=== PATIENT | male | born 1955 | race Caucasian/White ===

== ENCOUNTER → 2020-03-20 | Outpatient (CLI) | payer SELFPAY ==
[2020-03-20 18:49] LABS: BASOPHILS ABSOLUTE AUTO 0.09 K/mm3 (0.00-0.23); BASOPHILS PERCENT AUTO 1 % (0-2); EOSINOPHILS ABSOLUTE AUTO 0.17 K/mm3 (0.00-0.68); EOSINOPHILS PERCENT AUTO 2 % (0-6); Hemoglobin 12.3 g/dL (13.5-17.5); IMMATURE GRAN ABSOLUTE AUTO 0.03 K/mm3 (0.00-0.10); IMMATURE GRAN PERCENT AUTO 0 % (0-1); LYMPHOCYTES ABSOLUTE AUTO 1.23 K/mm3 (0.84-5.20); LYMPHOCYTES PERCENT AUTO 12 % (21-46); MONOCYTES ABSOLUTE AUTO 0.85 K/mm3 (0.16-1.47); MONOCYTES PERCENT AUTO 8 % (4-13); Mean Corpuscular HGB 25.4 pg (26.0-34.0); Mean Corpuscular HGB Conc 31.5 g/dL (31.5-36.5); Mean Corpuscular Volume 80 fL (80-100); Mean Platelet Volume 8.3 fL (9.1-12.4); NEUTROPHILS ABSOLUTE AUTO 7.77 K/mm3 (1.96-9.15); NEUTROPHILS PERCENT AUTO 77 % (41-73); Platelet Count 458 K/mm3 (150-400); RDW Standard Deviation 43.6 fL (35.1-46.3); Red Blood Cell Count 4.85 M/mm3 (4.30-5.90); White Blood Cell Count 10.14 K/mm3 (4.00-11.30)
[2020-03-20 18:59] LABS: Alanine Aminotransfer (ALT/SGP 30 U/L (12-78); Albumin, Blood 2.8 g/dL (3.4-5.0); Albumin/Globulin Ratio 0.6 (0.8-1.8); Alk Phos 123 U/L (40-126); Anion Gap 4 mmol/L (6-16); Aspartate Aminotrans (AST/SGOT 25 U/L (12-37); Bilirubin, Total 0.3 mg/dL (0.1-1.0); Blood Urea Nitrogen 11 mg/dL (8-24); Bun/Creatinine Ratio 18.6 (12.0-20.0); CO2, Blood 34 mmol/L (21-32); Calcium, Blood 9.5 mg/dL (8.5-10.1); Chloride, Blood 97 mmol/L (98-108); Creatinine, Blood 0.59 mg/dL (0.60-1.20); Globulin, Blood 4.7 g/dL (2.2-4.0); Glomerular Filtration Rate >60 (60-); Glucose, Blood 141 mg/dL (70-99); Potassium, Blood 4.1 mmol/L (3.5-5.5); Sodium, Blood 135 mmol/L (136-145); Total Protein, Blood 7.5 g/dL (6.4-8.2)
== END | disposition home or self-care (01) ==
LOC: LAB SHORT 18:43 → LAB EV 18:43
PROVIDERS: Physician Assistant Surgical
DX: R06.09 Other forms of dyspnea (principal)
CPT/HCPCS: 80053; 83880; 85025

== ENCOUNTER 2020-07-25 11:32 | Inpatient (IN) | payer SELFPAY ==
[~2020-07-25] VITALS: Ht 177.8 cm; Wt 72.6 kg
[~2020-07-25 11:32] MED LIST: IBUP200 PO
[2020-07-25 12:33] LABS: BASOPHILS ABSOLUTE AUTO 0.06 K/mm3 (0.00-0.23); BASOPHILS PERCENT AUTO 0 % (0-2); EOSINOPHILS ABSOLUTE AUTO 0.13 K/mm3 (0.00-0.68); EOSINOPHILS PERCENT AUTO 1 % (0-6); Hematocrit 47.4 % (37.0-53.0); Hemoglobin 14.3 g/dL (13.5-17.5); IMMATURE GRAN ABSOLUTE AUTO 0.07 K/mm3 (0.00-0.10); IMMATURE GRAN PERCENT AUTO 1 % (0-1); LYMPHOCYTES ABSOLUTE AUTO 0.57 K/mm3 (0.84-5.20); LYMPHOCYTES PERCENT AUTO 4 % (21-46); MONOCYTES ABSOLUTE AUTO 0.91 K/mm3 (0.16-1.47); MONOCYTES PERCENT AUTO 6 % (4-13); Mean Corpuscular HGB 25.8 pg (26.0-34.0); Mean Corpuscular HGB Conc 30.2 g/dL (31.5-36.5); Mean Corpuscular Volume 85 fL (80-100); Mean Platelet Volume 9.6 fL (9.1-12.4); NEUTROPHILS ABSOLUTE AUTO 13.43 K/mm3 (1.96-9.15); NEUTROPHILS PERCENT AUTO 88 % (41-73); Platelet Count 226 K/mm3 (150-400); RDW Coefficient Variation 18.6 % (11.7-14.2); RDW Standard Deviation 57.8 fL (35.1-46.3); Red Blood Cell Count 5.55 M/mm3 (4.30-5.90); White Blood Cell Count 15.17 K/mm3 (4.00-11.30)
[2020-07-25 12:55] LABS: Troponin I 0.211 ng/mL (0.000-0.040)
[2020-07-25 12:58] LABS: Influenza A, PCR NEGATIVE (NEGATIVE); Influenza B, PCR NEGATIVE (NEGATIVE); Resp Syncytial Virus, PCR NEGATIVE (NEGATIVE); SARS-Cov-2 (COVID-19) PCR, MMC NEGATIVE (NEGATIVE)
[2020-07-25 13:00] LABS: Alanine Aminotransfer (ALT/SGP 69 U/L (12-78); Albumin, Blood 2.5 g/dL (3.4-5.0); Albumin/Globulin Ratio 0.6 (0.8-1.8); Alk Phos 149 U/L (50-136); Anion Gap 6 mmol/L (6-16); Aspartate Aminotrans (AST/SGOT 111 U/L (12-37); Bilirubin, Total 1.4 mg/dL (0.1-1.0); Blood Urea Nitrogen 46 mg/dL (8-24); Bun/Creatinine Ratio 41.4 (12.0-20.0); CO2, Blood 34 mmol/L (21-32); Calcium, Blood 13.8 mg/dL (8.5-10.1); Chloride, Blood 93 mmol/L (98-108); Creatinine, Blood 1.11 mg/dL (0.60-1.20); Globulin, Blood 4.3 g/dL (2.2-4.0); Glomerular Filtration Rate >60 (60-); Glucose, Blood 342 mg/dL (70-99); Sodium, Blood 133 mmol/L (136-145); Total Protein, Blood 6.8 g/dL (6.4-8.2)
[2020-07-25] MEDS ORDERED: NOVOLIN N100 UNIT/2 SC (14:24)
[2020-07-25] MEDS ORDERED: NOVOLIN R100 UNIT/2 SC (14:25)
[2020-07-25] MEDS ORDERED: ALBU90OI INH (14:26)
[2020-07-25] MEDS ORDERED: SYMBICORT 160-4.6 GM INH (14:26)
[2020-07-25] MEDS ORDERED: STIOLTO RESPIMAT4 G1 INH (14:27)
[2020-07-25 14:49] LABS: Source, Urine Clean Catch
[2020-07-25 14:51] LABS: Appearance, Urine Clear (Clear); Bilirubin, Urine Neg (Neg); Blood, Urine Neg (Neg); Color, Urine Yellow (P-Yellow); Glucose Qualitative, Urine 2+ (Neg); Ketones, Urine 1+ (Neg); Leukocyte Esterase, Urine Neg (Neg); Nitrite, Urine Neg (Neg); Protein, Urine Neg (Neg); Specific Gravity, Urine 1.015 (1.003-1.022); Urobilinogen, Urine NORM (Normal)
[2020-07-25 15:08] LABS: International Normalized Ratio 1.87; Prothrombin Time Results 19.3 Sec (9.7-11.5)
--- NOTE | 2020-07-25 18:10 | NUR ---
SHIFT SUMMARY. 1602 PT ADMITTED TO MEDICAL FLOOR VIA GURNEY. PT TRANSFERED TO BED WITH SLIDER SHEET AND 3 STAFF. PT ON 5L O2 NC UPON ARIVAL, SPO2 89%, INCREASED O2 TO 6L O2, SPO2 NOW 92%. LUNGS COARSE T/O, MORE DIM ON THE L LOBES, CONTINUOUS BIOX PLACED BY RT. PT IS LETHARGIC, NEW PERSON AND PLACE, SLOW TO RESPOND. PT WITH STAGE III PRESSURE ULCER TO SACRUM WITH SLOUGH IN WOUND BED, WOUND CLEASED AND FOAM DRESSING APPLIED. SKIN TEAR TO R CLAVICLE, WOUND CLEANSED AND DRESSING PLACED. 3+ EDEMA TO BLE. CBG OVER 300, DR. ADEN NOTIFIED AND ORDERS PLACED FOR SS INSULIN.
[2020-07-26 01:50] LABS: BASOPHILS ABSOLUTE AUTO 0.05 K/mm3 (0.00-0.23); BASOPHILS PERCENT AUTO 0 % (0-2); EOSINOPHILS ABSOLUTE AUTO 0.16 K/mm3 (0.00-0.68); EOSINOPHILS PERCENT AUTO 1 % (0-6); Hematocrit 44.3 % (37.0-53.0); Hemoglobin 13.3 g/dL (13.5-17.5); IMMATURE GRAN PERCENT AUTO 1 % (0-1); LYMPHOCYTES PERCENT AUTO 5 % (21-46); MONOCYTES ABSOLUTE AUTO 1.44 K/mm3 (0.16-1.47); MONOCYTES PERCENT AUTO 10 % (4-13); Mean Corpuscular HGB 26.1 pg (26.0-34.0); Mean Corpuscular Volume 87 fL (80-100); Mean Platelet Volume 9.6 fL (9.1-12.4); NEUTROPHILS ABSOLUTE AUTO 12.71 K/mm3 (1.96-9.15); NEUTROPHILS PERCENT AUTO 84 % (41-73); Platelet Count 247 K/mm3 (150-400); RDW Coefficient Variation 18.7 % (11.7-14.2); RDW Standard Deviation 58.6 fL (35.1-46.3); Red Blood Cell Count 5.09 M/mm3 (4.30-5.90); White Blood Cell Count 15.16 K/mm3 (4.00-11.30)
[2020-07-26 01:56] LABS: Alanine Aminotransfer (ALT/SGP 62 U/L (12-78); Albumin, Blood 2.2 g/dL (3.4-5.0); Albumin/Globulin Ratio 0.6 (0.8-1.8); Alk Phos 117 U/L (50-136); Anion Gap 1 mmol/L (6-16); Aspartate Aminotrans (AST/SGOT 83 U/L (12-37); Bilirubin, Total 0.6 mg/dL (0.1-1.0); Blood Urea Nitrogen 47 mg/dL (8-24); Bun/Creatinine Ratio 38.8 (12.0-20.0); CO2, Blood 43 mmol/L (21-32); Calcium, Blood 13.5 mg/dL (8.5-10.1); Chloride, Blood 95 mmol/L (98-108); Creatinine, Blood 1.21 mg/dL (0.60-1.20); Globulin, Blood 3.7 g/dL (2.2-4.0); Glomerular Filtration Rate >60 (60-); Glucose, Blood 168 mg/dL (70-99); Potassium, Blood 3.9 mmol/L (3.5-5.5); Sodium, Blood 139 mmol/L (136-145); Total Protein, Blood 5.9 g/dL (6.4-8.2)
--- NOTE | 2020-07-26 04:48 | NUR ---
ECHO TECHNOLOGIST SUMMARY PT AAOX2-3, KNOWS NAME, , AND THAT HE'S IN [place]. VERY SLOW TO RESPOND AND OFTEN PULLS AT O2 MONITOR OR IV'S FOR NO REASON. REQUIRES REDIRECTION AT TIMES. VERY SOFT SPOKEN AND DIFFICULT TO UNDERSTAND. ROBERTS CATH DRAINING CLEAR YELLOW URINE, ADDITIONAL IV LASIX ORDER ADDED PER JULIO SMITH. PT STILL HAS PITTING EDEMA IN BLE. ON 5L O2 VIA NC. ON CONTINUOUS PULSE OX, MACHINE ALARMS AT TIMES DUE TO LOW PERFUSION BUT READS MID TO HIGH 90'S ON O2 SATS. PT HAS SLEPT MOST OF THE NIGHT. CALCIUM TRENDING DOWN TO 13.5 DOWN FROM 13.8, PER PROGRESS REPORT FOCUS IS TO DIURESE PT FIRST AND THEN DIRECT FOCUS TO LOWERING CALCIUM LEVEL WITH IV FLUIDS. VSS, WILL CONTINUE TO MONITOR.
--- NOTE | 2020-07-26 10:52 | NUR ---
PATIENT NOW ON COMFORT MEASURES. SLEEPING AT THIS TIME, NO S/S OF PAIN OR DISCOMFORT. FALL PRECAUTIONS IN PLACE. ROBERTS TO GRAVITY.
--- NOTE | 2020-07-26 14:03 | NUR ---
Comfort care visit - Pt's RN and I turned/repositioned pt. Furrowing of brow and grimacing noted before and during repositioning. Pt's resp rate is 36-40 and shallow after repositioning. Some upper airway secretions noted at this time. RN states this and grimacing are new since am assessments. Two family members have been to visit. Pt has remained unresponsive to family and staff. He briefly opened eyes while both RN and I were at the bedside after we turned him. Burkett catheter with scant amount of dk yellow urine in burkett drainage bag. RN and I discussed prn medications. Will try small dose of Roxanol for increased resp effort and nonverbal indicators of pain. Contacted Dr for orders to treat pooling of secretions in upper airway. VO obtained and entered for Atropine gtts and scopolomine patch prn.
--- NOTE | 2020-07-26 14:16 | NUR ---
CARE COORDINATION REFERRAL - ADMIT:07/25/20 DISCHARGE: DX: ACUTE ENCEPHALOPATHY CC: ANTONI ANNETTE CALL: RESIDENCE: CAREGIVER: ALMA CHRISTINE, [facility] ISAAC ZARAGOZANARD, [facility] DX: COPD, NEOPLASM OF LUNG, TOBACCO DEPENDENCE, TYPE 2 DM DME: OXYGEN AND EQUIPMENT CCM: NONE HOME HEALTH: NONE
--- NOTE | 2020-07-26 15:49 | NUR ---
PATIENT REPOSITIONED AND ROXINOL GIVEN TO TREAT PAIN. PATIENT STARTING TO HAVE INCREASED SECRETIONS, PHARMACY CALLED TO HAVE ATROPINE AND SCOPALAMINE PATCH SENT. FAMILY AT BEDSIDE. WILL CONT TO MONITOR.
--- NOTE | 2020-07-26 17:31 | NUR ---
PATIENT WOKE WHEN REPOSITIONED. DENIED PAIN WHEN ASKED. CONTINUES TO HAVE SECRETIONS, SCOPALAMINE PATCH PLACE. PATIENT APPEARS COMFORTABLE. ROBERTS TO GRAVITY. CURRENTLY NO FAMILY AT BEDSIDE.
--- NOTE | 2020-07-27 05:24 | NUR ---
EARLY CHILDHOOD EDUCATION COORDINATOR SUMMARY NO ACUTE CHANGES THIS SHIFT. PT CONTINUES ON COMFORT CARE. HAS BEEN MINIMALLY RESPONSIVE TO STAFF. HAS SLEPT THROUGH MOST OF THE SHIFT AND APPEARS IN NO ACUTE DISTRESS. NO NONVERBAL SIGNS OF PAIN OR DISCOMFORT NOTED, EVEN WITH REPOSITIONING. WILL CONTINUE TO MONITOR UNTIL DAY RN ASSUMES CARE.
--- NOTE | 2020-07-27 05:48 | NUR ---
TIME OF CALLED AT 0530 THIS AM. NOTIFIED PT'S BROTHER GRACE WHO STATED THAT ARRANGEMENTS HAVE BEEN MADE WITH [employer] [place]. GRACE ALSO SAID THAT HE WOULD NOTIFY OTHER FAMILY MEMBERS AND THAT NOBODY WOULD BE COMING IN TO SEE HIS THIS AM THEY HAD ALREADY SAID THEIR FINAL GOODBYES YESTERDAY.
--- NOTE | 2020-07-27 06:09 | NUR ---
DONOR LINE CALLED. PT POTENTIAL EYE DONOR. EYES ICED. PT'S MEDICAL INFORMATION INCLUDING LABS, H & P, LAST PROGRESS NOTE, AND CULTURES FAXED TO DONOR LINE FOR CONSIDERATION. AWAITING CALL BACK. DR. CORRAL AND NURSING WRAPPER LAYER JESÚS SHELL NOTIFIED OF PT PASSING.
== END 2020-07-27 05:30 | DRG 640 ==
LOC: ER 11:32 → MEDS 14:41 → ER 16:06 → MEDS 07-27 05:30
PROVIDERS: Emergency Medicine; Nurse Practitioner Acute Care; ADMIT Family Medicine
DX: E83.52 Hypercalcemia (principal); L89.313 Pressure ulcer of right buttock, stage 3; J96.21 Acute and chronic respiratory failure with hypoxia; G92 Toxic encephalopathy; I21.A1 Myocardial infarction type 2; J18.9 Pneumonia, unspecified organism; J91.0 Malignant pleural effusion; J44.0 Chronic obstructive pulmonary disease with (acute) lower respiratory infection; C34.12 Malignant neoplasm of upper lobe, left bronchus or lung; C79.51 Secondary malignant neoplasm of bone; Z20.822 Contact with and (suspected) exposure to COVID-19; I27.20 Pulmonary hypertension, unspecified; Z51.5 Encounter for palliative care; Z66 Do not resuscitate; Z99.81 Dependence on supplemental oxygen; F17.210 Nicotine dependence, cigarettes, uncomplicated; E11.65 Type 2 diabetes mellitus with hyperglycemia; R79.89 Other specified abnormal findings of blood chemistry; G25.0 Essential tremor
CPT/HCPCS: 0241U; 36415; 51702; 70450; 71045; 80053; 81003; 82306; 82330; 82947; 83880; 83970; 84100; 84145; 84443; 84484; 85025; 85610; 85730; 87040; 93005; 93010; 93306; 94640; 94760; 94762; 96374-59; 96376-59; 99285-25; A9270; J0696; J1650; J1815; J1940; J7030